=== PATIENT | male | born 1995 | race Caucasian/White ===

== ENCOUNTER 2017-01-24 04:07 | Observation (INO) | payer MEDICAID ==
[2017-01-24 04:23] VITALS: O2SAT 95
--- NOTE | 2017-01-24 05:18 | ED PDOC ---
HPI: Psych/Substance Abuse Time Seen by Provider: 01/24/17 04:11 Chief Complaint (Nursing): Psychiatric Evaluation Chief Complaint (Provider): Psychiatric Evaluation ED Caveat: Intoxicated History Per: Patient History/Exam Limitations: intoxication Onset/Duration Of Symptoms: Hrs Suicide/Self Injury Attempted (Context): Other (On top of building roof) Modifying Factor(s): Alcohol Associated Symptoms: Suicidal Thoughts Additional Complaint(s): 21 y/o male patient presenting to the ED with suicidal ideation. PT was found on the roof of his building and was heavily intoxicated at the time. PT states he just lost a close relative to a motorcycle accident and that is why he was on the roof. Pt denies any trauma and past medical history. Past Medical History Reviewed: Historical Data, Nursing Documentation, Vital Signs Vital Signs: Last Vital Signs Temp 97.8 F 01/24/17 04:23 Pulse 94 H 01/24/17 04:22 Resp 18 01/24/17 04:22 BP 126/74 01/24/17 04:22 Pulse Ox 95 01/24/17 04:22 - Medical History PMH: Denies: Diabetes, Hepatitis, HIV, HTN, Seizures, Sexually Transmitted Disease - Surgical History Surgical History: No Surg Hx - Family History Family History: States: No Known Family Hx - Social History Current smoker - smoking cessation education provided: No Alcohol: None Drugs: Denies - Home Medications Home Medications: Ambulatory Orders Medication Instructions Recorded Unobtainable 09/13/15 - Allergies Allergies/Adverse Reactions: Allergies Allergy/AdvReac Type Severity Reaction Status Date / Time No Known Allergies Allergy Verified 09/08/15 21:23 Review of Systems ROS Statement: Except As Marked, All Systems Reviewed And Found Negative Cardiovascular: Negative for: Chest Pain Respiratory: Negative for: Shortness of Breath Psych: Positive for: Suicidal ideation Physical Exam - Reviewed Nursing Documentation Reviewed: Yes Vital Signs Reviewed: Yes - Physical Exam Appears: Positive for: Non-toxic, No Acute Distress Skin: Positive for: Normal Color, Warm, Dry Cardiovascular/Chest: Positive for: Regular Rate, Rhythm Respiratory: Positive for: Normal Breath Sounds. Negative for: Respiratory Distress Gastrointestinal/Abdominal: Positive for: Normal Exam Neurologic/Psych: Positive for: Alert. Negative for: Oriented, Motor/Sensory Deficits - Laboratory Results Result Diagrams: 01/24/17 06:20 01/24/17 06:15 - ECG O2 Sat by Pulse Oximetry: 95 (RA) Pulse Ox Interpretation: Normal Medical Decision Making Medical Decision Making: Time: 514 Initial impression: Alcohol Intoxication and Suicide Ideation Initial plan: --EKG --ACETAMINOPHEN --ALCOHOL SERUM --CMP --DRUG SCREEN, URINE --SALICYLATE --CRISIS EVALUATION --EKG-ED --CBC --1:1 OBS FOR SUICIDE PRECAUTION --ADMIT --URINALYSIS 0626 Reassess: Pending Medical Clearance for Crisis Scribe Attestation: Documented by Charlene Olivares, acting as a scribe for Arianne Wyman MD. Scribe Attestation: All medical record entries made by the Scribe were at my direction and personally dictated by me. I have reviewed the chart and agree that the record accurately reflects my personal performance of the history, physical exam, medical decision making, and the department course for this patient. I have also personally directed, reviewed, and agree with the discharge instructions and disposition. ED OBSERVATION Date of observation admission: 01/24/17 Time of observation admission: 05:10 - Observation admission statement Patient is being placed in observation because:: Precaution Due to Suicide Ideation Clinical Sobriety - Goals of Observation Goals of observation are:: Clinical Sobriety - Progress Note Progress Note: 01/24/17 06:28 Pending Medical Clearance for Crisis Disposition - Clinical Impression Clinical Impression: Adjustment disorder, Alcohol dependence - Patient ED Disposition Is Patient to be Admitted: Transfer of Care - Disposition Disposition: Transfer of Care Disposition Time: 07:00 Condition: STABLE Patient Signed Over To: Ivory Vega
[2017-01-24 06:24] LABS: BASO % 0.5 % (0.0-2.0); EOS # 0.1 K/uL (0.0-0.7); EOS % 0.9 % (0.0-4.0); HEMATOCRIT 48.9 % (35.0-51.0); LYMPH # 3.7 K/uL (1.0-4.3); LYMPH % 55.8 % (20.0-40.0); MEAN CELL VOLUME 85.2 fl (80.0-94.0); MEAN CORPUSCULAR HEMOGLOBIN 28.4 pg (27.0-31.0); MEAN CORPUSCULAR HGB CONC 33.3 g/dL (33.0-37.0); MEAN PLATELET VOLUME 9.7 fl (7.2-11.7); MONO # 0.5 K/uL (0.0-0.8); MONO % 8.4 % (0.0-10.0); NEUT # 2.2 K/uL (1.8-7.0); NEUT % 34.4 % (50.0-75.0); NRBC % 0.1 % (0.0-0.0); WHITE BLOOD COUNT 6.5 K/uL (4.8-10.8)
[2017-01-24 06:29] LABS: ALB/GLOB RATIO 1.3 (1.0-2.1); ALCOHOL SERUM 71 mg/dl (0-10); ALKALINE PHOSPHATASE 90 U/L (38-126); ALT/SGPT 37 U/L (21-72); AST/SGOT 47 U/L (17-59); BILIRUBIN,TOTAL 1.1 mg/dl (0.2-1.3); BLOOD UREA NITROGEN 8 mg/dl (9-20); CALCIUM 9.7 mg/dL (8.4-10.2); CARBON DIOXIDE 18 mmol/L (22-30); CHLORIDE 107 mmol/L (98-107); GFR AFRICAN-AMERICAN > 60; GLUCOSE,RANDOM 110 mg/dL (75-110); POTASSIUM 3.6 MMOL/L (3.6-5.0); SODIUM 144 mmol/l (132-148)
[2017-01-24 07:05] LABS: RBC URINE 3 /hpf (0-3); URINE BILIRUBIN NEGATIVE (NEGATIVE); URINE BLOOD NEGATIVE (NEGATIVE); URINE COLOR AMBER (YELLOW); URINE GLUCOSE (UA) NEG (Normal); URINE KETONE TRACE mg/dL (NEGATIVE); URINE LEUKOCYTE ESTERASE NEG Leu/uL (Negative); URINE PROTEIN 30 mg/dL (NEGATIVE); WBC URINE 2 /hpf (0-5)
--- NOTE | 2017-01-24 07:39 | ED PDOC ---
- Laboratory Results Result Diagrams: 01/24/17 06:20 01/24/17 06:15 - ECG O2 Sat by Pulse Oximetry: 95 (RA) Disposition - Clinical Impression Clinical Impression: Adjustment disorder, Alcohol dependence - POA Present On Arrival: None - Disposition Disposition: Routine/Home Disposition Time: 11:05 Condition: STABLE Progress Note - Review of Symptoms Events since last encounter: time: 1105 Pt seen and evaluated by Crisis, stable for d/c home. Pt's girlfriend is in the ER to take him home. Addendum Addendum: 01/24/17 07:[address] Pt [address] out [address] Wyman pending Crisis evaluation.
[2017-01-24 08:10] VITALS: BP 139/76; PULSE 64; RESP 20; TEMP 98.5
--- NOTE | 2017-01-26 11:57 | CARD ---
APPROVED REPORT EKG Measurement Heart [id number] <Conclusion> Sinus rhythm with marked sinus arrhythmia Early repolarization Otherwise normal ECG
== END 2017-01-24 11:10 | disposition home or self-care (01) ==
LOC: H.ER 04:07 → H.EROBSV 05:13
PROVIDERS: ADMIT Emergency Medicine; ATTEND Emergency Medicine
DX: F10.229 Alcohol dependence with intoxication, unspecified (principal); F43.20 Adjustment disorder, unspecified; R45.851 Suicidal ideations